=== PATIENT | female | born 1980 | race Two or more races ===

== ENCOUNTER 2020-03-21 12:08 | Emergency (ER) | payer MEDICAID ==
[~2020-03-21] VITALS: Ht 152.4 cm; Wt 63.5 kg
[2020-03-21 12:23] VITALS: BP 131/89
--- NOTE | 2020-03-21 12:23 | NUR ---
ED Nurse Note: Pt walked into ED for epigastric pain for 1 month. Pt states she has nausea, but denies diarrhea, bodyaches, chills, fever. Pt is alert and orientedx4, ambulatory. Pt has been seen by [facility]. Set up on monitor.
[2020-03-21] MEDS ORDERED: Omnipaque-300 100ml vial INJ PRN (12:45)
[2020-03-21] MEDS ORDERED: Ketorolac 30mg Inj IV ONE (12:45)
[2020-03-21 13:37] LABS: BASOPHILS % (AUTO) 1.4 % (0.0-2.0); EOSINOPHILS % (AUTO) 2.2 % (0.0-3.0); HEMATOCRIT 44.4 % (37.0-47.0); HEMOGLOBIN 14.3 G/DL (12.0-16.0); MEAN CORPUSCULAR VOLUME 98 FL (80-99); MONOCYTES % (AUTO) 6.4 % (1.0-10.0); PLATELET COUNT 273 K/UL (150-450); RED BLOOD COUNT 4.53 M/UL (4.20-5.40); RED CELL DISTRIBUTION WIDTH 11.3 % (11.6-14.8); WHITE BLOOD COUNT 6.3 K/UL (4.8-10.8)
[2020-03-21 13:38] LABS: APPEARANCE,URINE CLEAR; BILIRUBIN, URINE NEGATIVE (NEGATIVE); COLOR,URINE PALE YELLOW; GLUCOSE, URINE (UA) NEGATIVE (NEGATIVE); KETONES,URINE NEGATIVE (NEGATIVE); LEUKOCYTE ESTERASE ,URINE NEGATIVE (NEGATIVE); NITRITE,URINE NEGATIVE (NEGATIVE); PH,URINE 7 (4.5-8.0); PROTEIN,URINE NEGATIVE (NEGATIVE); UROBILINOGEN,URINE NORMAL MG/DL (0.0-1.0)
[2020-03-21 13:45] LABS: ANION GAP 8 mmol/L (5-15); BLOOD UREA NITROGEN 13 mg/dL (7-18); CALCIUM 9.3 MG/DL (8.5-10.1); CARBON DIOXIDE 28 MMOL/L (21-32); CHLORIDE 103 MMOL/L (98-107); CREATININE 0.7 MG/DL (0.55-1.30); POTASSIUM 3.5 MMOL/L (3.5-5.1); SODIUM 139 MMOL/L (136-145)
[2020-03-21 13:50] LABS: ALANINE AMINOTRANSFERASE 40 U/L (12-78); ALBUMIN 3.8 G/DL (3.4-5.0); ALBUMIN/GLOBULIN RATIO 0.9 (1.0-2.7); ALKALINE PHOSPHATASE 62 U/L (46-116); ASPARTATE AMINO TRANSFERASE 19 U/L (15-37); BILIRUBIN,TOTAL 0.5 MG/DL (0.2-1.0)
[2020-03-21 15:20] VITALS: BP 127/82
--- NOTE | 2020-03-21 15:26 | Diagnostic Imaging Report ---
Clinical Indication: Epigastric pain for one month, nausea Technique: No oral contrast utilized, per emergency room physician request IV administration nonionic contrast. Venous phase spiral acquisition obtained through the abdomen and pelvis. Multiplanar reconstructions were generated. Total dose length product 237 mGycm. CTDIvol(s) 4 mGy. Dose reduction achieved using automated exposure control Comparison: none Findings: Lack of enteric contrast limits assessment of the GI tract. The appendix is normal. No evidence of diverticulosis or diverticulitis. No small bowel distention. Distal esophagus, stomach, duodenum are all unremarkable. No free or loculated intraperitoneal gas or fluid is evident. The liver is hypoattenuating relative to spleen, indicative of mild fatty change. No focal abnormality. The gallbladder, bile ducts, pancreas, spleen, adrenals, kidneys are all unremarkable. No retroperitoneal or mesenteric mass or adenopathy. No pelvic mass or adenopathy. Unremarkable uterus and ovaries There are degenerative changes of the lumbosacral junction. The included lung bases are clear. Impression: Limited assessment of the GI tract, due to lack of enteric contrast administration No definite acute abnormality Mild fatty liver Degenerative lumbosacral spondylosis The CT scanner at [facility] is accredited by the [employer] and the scans are performed using protocols designed to limit radiation exposure to as low as reasonably achievable to attain images of sufficient resolution adequate for diagnostic evaluation.
--- NOTE | 2020-03-21 15:46 | Emergency Room Report ---
History of Present Illness General Chief Complaint: Abdominal Pain Source: Patient Present Illness HPI 39-year-old female with no signal hospital history here complaining of 1 week of diffuse abdominal pain rating a 7 out of 10 without radiation and flatulence. Also complains of nausea and vomiting. Denies diarrhea, bloody emesis, blood in stool. Reports that her primary doctor has told her to get a CT scan of the abdomen. Denies any surgical history of the abdomen. Has not taken medication for symptom relief. Denies fever and chills, cough and congestion. Denies urinary symptoms. Denies . Allergies: Coded Allergies: No Known Allergies (Unverified , 03/21/20) COVID-19 Screening Contact w/high risk pt: No Experienced COVID-19 symptoms?: No COVID-19 Testing performed PROGRAM DIRECTOR SCOUTING: No Patient History Past Medical History: see triage record Past Surgical History: none Pertinent Family History: none Now: No Immunizations: UTD Reviewed Nursing Documentation: PMH: Agreed; PSxH: Agreed Nursing Documentation-PMH Past Medical History: No Stated History Review of Systems All Other Systems: negative except mentioned in HPI Physical Exam Vital Signs Date Time Temp Pulse Resp B/P (MAP) Pulse Ox O2 Delivery O2 Flow Rate FiO2 03/21/20 12:14 98.1 90 22 131/89 (103) 98 Room Air Sp02 EP Interpretation: reviewed, normal General Appearance: no apparent distress, alert, GCS 15, non-toxic Head: normocephalic, atraumatic Eyes: bilateral eye normal inspection, bilateral eye PERRL ENT: hearing grossly normal, no angioedema, normal voice Neck: full range of motion, supple, thyroid normal, no meningismus, supple/symm/no masses Respiratory: normal breath sounds, no retraction, no accessory muscle use, speaking full sentences Cardiovascular #1: regular rate, rhythm, no edema Gastrointestinal: normal bowel sounds, non tender, soft, no mass, no organomegaly, no peritonitis, non-distended, no guarding, no rebound Rectal: deferred Genitourinary: no CVA tenderness Musculoskeletal: back normal Neurologic: alert, motor strength/tone normal, oriented x3, sensory intact, responsive, speech normal Psychiatric: judgement/insight normal, memory normal, mood/affect normal, no suicidal/homicidal ideation Skin: no rash Lymphatic: no adenopathy Medical Decision Making PA Attestation All my diagnosis and treatment plans were reviewed ad discussed with my supervising physician Dr. Healy Diagnostic Impression: Primary Impression: Abdominal pain Additional Impression: Gastritis ER Course 39-year-old female with no signal hospital history here complaining of 1 week of diffuse abdominal pain rating a 7 out of 10 without radiation and flatulence. Also complains of nausea and vomiting. Denies diarrhea, bloody emesis, blood in stool. Reports that her primary doctor has told her to get a CT scan of the abdomen. Denies any surgical history of the abdomen. Has not taken medication for symptom relief. Denies fever and chills, cough and congestion. Denies urinary symptoms. Denies . Ddx considered but are not limited to: appendicitis, cholecystis, gastritis, gastroenteritis, UTI, pyelonephritis, SBO, diverticulitis, influenza with GI manifestation, MO, complication with Vital signs: are WNL, pt. is afebrile H&PE are most consistent with: Gastritis ORDERS: abdominal CT, abdominal pain set, Pepcid, dicyclomine, Zofran ED INTERVENTIONS: NS bolus, Toradol, Zofran, Pepcid DISCHARGE: At this time pt. is stable for d/c to home. Will provide printed patient care instructions, and any necessary prescriptions. Care plan and follow up instructions have been discussed with the patient prior to discharge. Advis ed patient take medication as directed, follow primary care provider, also patient has fatty liver and needs to cut back on greasy food. If worsening symptoms return to emergency room CT/MRI/US Diagnostic Results CT/MRI/US Diagnostic Results : Imaging Test Ordered: CT abdomen pelvis with contrast Impression Comparison: none Findings: Lack of enteric contrast limits assessment of the GI tract. The appendix is normal. No evidence of diverticulosis or diverticulitis. No small bowel distention. Distal esophagus, stomach, duodenum are all unremarkable. No free or loculated intraperitoneal gas or fluid is evident. The liver is hypoattenuating relative to spleen, indicative of mild fatty change. No focal abnormality. The gallbladder, bile ducts, pancreas, spleen, adrenals, kidneys are all unremarkable. No retroperitoneal or mesenteric mass or adenopathy. No pelvic mass or adenopathy. Unremarkable uterus and ovaries There are degenerative changes of the lumbosacral junction. The included lung bases are clear. Impression: Limited assessment of the GI tract, due to lack of enteric contrast administration No definite acute abnormality Mild fatty liver Degenerative lumbosacral spondylosis Last Vital Signs Date Time Temp Pulse Resp B/P (MAP) Pulse Ox O2 Delivery O2 Flow Rate FiO2 03/21/20 12:23 98.1 90 22 131/89 98 Room Air Disposition: HOME, SELF-CARE Condition: Stable Scripts Ondansetron (Zofran) 4 Mg Tablet 4 MG ORAL Q6H PRN for Nausea & Vomiting, #14 TAB Prov: Cheryl Jackson 03/21/20 Dicyclomine Hcl* (DICYCLOMINE HCL*) 10 Mg Capsule 10 MG ORAL QID, #20 CAP Prov: Cheryl Jackson 03/21/20 Famotidine* (Pepcid 20mg tablet*) 20 Mg Tablet 20 MG ORAL DAILY for Gerd, #30 TAB 0 Refills Prov: Cheryl Jackson 03/21/20 Referrals: [facility],REFERRING (PCP) Patient Instructions: Abdominal Pain, Adult Additional Instructions: Have your primary doctor tested for H. pylori, take medication as directed, if worsening symptom return to the emergency room Cheryl Jackson Mar 21, 2020 15:46
[2020-03-21] MEDS ORDERED: FAMOTIDINE20 MG ORAL (15:48)
[2020-03-21] MEDS ORDERED: DICYCLOMINE HCL10 MG ORAL (15:48)
[2020-03-21] MEDS ORDERED: ZOFRAN4 M1 ORAL (15:48)
[2020-03-21 15:55] VITALS: BP 128/92
--- NOTE | 2020-03-21 15:55 | NUR ---
ER DISCHARGE NOTE: Patient is cleared to be discharged per ERMD, pt is aox4, on room air, with stable vital signs. pt was given dc and prescription instructions, pt was able to verbalize understanding, pt id band and iv site removed without complications. pt is able to ambulate with steady gait. pt took all belongings. Pt instructed regarding abdoinal pain.
== END 2020-03-21 15:55 | disposition home or self-care (01) ==
LOC: EMR 14:24
DX: K29.70 Gastritis, unspecified, without bleeding (principal); K76.0 Fatty (change of) liver, not elsewhere classified; M47.817 Spondylosis without myelopathy or radiculopathy, lumbosacral region
CPT/HCPCS: 36415; 74177; 80053; 80307; 81003; 81025; 83690; 85025; 96374; 96375; 99284; J2405